=== PATIENT | female | born 1960 | race Caucasian/White ===

== ENCOUNTER → 2016-10-21 | Outpatient (CLI) | payer OTHER ==
[~2016-10-21] MED LIST: ASPI325T6 PO; ASPIRIN 81M81 MG/TA2 PO; CELEXA 20MG20 MG/TAB PO; ISORDIL 10MG10 MG PO; LIPITOR 40MG TA40 MG PO; LOPRESSOR 225 MG/TAB PO; PLAVIX 75MG TAB75 MG PO
== END ==
LOC: MC.RAD 08:33
DX: Z12.31 Encounter for screening mammogram for malignant neoplasm of breast (principal)

== ENCOUNTER → 2018-10-03 | Outpatient (CLI) | payer BC | LOC: COL.RAD 07:43 | DX: M25.532 Pain in left wrist (principal) | CPT/HCPCS: J3301; Q9967 ==

== ENCOUNTER → 2019-02-21 | Outpatient (CLI) | payer BC | LOC: MC.RAD 06:53 | DX: Z12.31 Encounter for screening mammogram for malignant neoplasm of breast (principal) ==

== ENCOUNTER 2020-10-30 12:24 | Emergency (ER) | payer BC ==
[~2020-10-30] VITALS: Ht 154.9 cm; Wt 68.2 kg
[2020-10-30 12:59] VITALS: TEMP 97.8
[2020-10-30 13:34] LABS: BASO # 0.1 (0.0-0.2); BASO % 0.9 % (0.0-2.0); EOS # 0.6 (0.0-0.7); EOS % 7.6 % (0-4.0); GRAN # 3.7 (1.4-6.5); GRAN % 50.7 % (42.2-75.2); HEMATOCRIT 44.5 % (37.0-47.0); HEMOGLOBIN 14.1 g/dl (12.5-16.0); LYMPH # 2.3 (1.2-3.4); LYMPH % 30.7 % (20.0-51.0); MEAN CELL VOLUME 94 fl (80.0-100.0); MEAN CORPUSCULAR HEMOGLOBIN 30 pg (27.0-31.0); MEAN CORPUSCULAR HGB CONC 32 g/dl (33.0-37.0); MEAN PLATELET VOLUME 9.6 fl (7.4-10.4); MONO # 0.7 (0.1-0.6); MONO % 9.8 % (1.7-9.3); PLATELET COUNT 250 K/mm3 (130-400); RED BLOOD COUNT 4.74 M/mm3 (4.10-5.30); REDCELL DISTRIBUTION WIDTH-CV 14.1 % (11.5-14.5)
[2020-10-30 13:50] LABS: ALANINE AMINOTRANSFERASE 28 U/L (4-34); ALBUMIN 4.2 gm/dL (3.5-5.0); ALKALINE PHOSPHATASE 90 U/L (50-136); ANION GAP 3 mmol/L (7-16); AST,SGOT 41 U/L (15-37); BILIRUBIN,TOTAL 0.7 mg/dL (0.0-1.0); BLOOD UREA NITROGEN 13 mg/dL (7-17); CARBON DIOXIDE 29 mmol/L (22-30); CHLORIDE 107 mmol/L (98-107); CREATININE, serum 0.72 (0.52-1.25); GLUCOSE 98 mg/dL (74-106); SODIUM 138 mmol/L (137-145)
[2020-10-30 14:01] LABS: LIPASE 130 U/L (23-300)
[2020-10-30 14:09] LABS: TROPONIN-I < 0.012 ng/mL (0.000-0.035)
[2020-10-30 16:14] VITALS: BP 117/79; PULSE 64
[2020-11-18] MEDS ORDERED: PLAVIX 75MG TAB75 MG PO (09:55)
== END 2020-10-30 16:19 | disposition home or self-care (01) ==
LOC: COL.ER 12:24
PROVIDERS: Personal Emergency Response Attendant
DX: R10.13 Epigastric pain (principal); E78.5 Hyperlipidemia, unspecified; Z86.73 Personal history of transient ischemic attack (TIA), and cerebral infarction without residual deficits; Z79.899 Other long term (current) drug therapy; Z79.82 Long term (current) use of aspirin

== ENCOUNTER → 2020-11-13 | Outpatient (CLI) | payer BC | LOC: MC.RAD 11-12 11:45 | DX: Z12.31 Encounter for screening mammogram for malignant neoplasm of breast (principal) ==

== ENCOUNTER → 2020-11-18 | Outpatient (CLI) | payer BC ==
--- NOTE | 2020-11-18 10:03 | NUR ---
pt drank caffeine this am. pt was instructed to call dr torres office and reschedule
== END ==
LOC: COL.CARD 09:35
DX: R07.9 Chest pain, unspecified (principal); Z53.8 Procedure and treatment not carried out for other reasons

== ENCOUNTER → 2020-12-02 | Outpatient (CLI) | payer BC ==
[~2020-12-02] VITALS: Ht 154.9 cm; Wt 71.6 kg
[2020-12-02 10:29] VITALS: BP 135/79; PULSE 70; TEMP 98.6
[2020-12-02 12:08] VITALS: BP 136/65; PULSE 108
[2020-12-02 12:10] VITALS: BP 150/70; PULSE 99
[2020-12-02 12:11] VITALS: BP 124/62; PULSE 89
== END ==
LOC: COL.CARD 09:47
DX: R07.9 Chest pain, unspecified (principal)
CPT/HCPCS: A9500; J2785

== ENCOUNTER → 2021-04-15 | Outpatient (CLI) | payer BC | LOC: COL.CARD 11:28 | DX: R56.9 Unspecified convulsions (principal) ==